=== PATIENT | female | born 1945 | race Caucasian/White ===

== ENCOUNTER 2017-01-02 10:12 | Inpatient (IN) | payer MEDICARE, BC ==
[~2017-01-02] VITALS: Ht 149.9 cm; Wt 75.8 kg
[2017-01-02] MEDS ORDERED: SYNTHROID100 MCG PO (11:37)
[2017-01-02] MEDS ORDERED: LEVOCETIRIZINE D5 MG PO (11:38)
[2017-01-02] MEDS ORDERED: PHENERGAN 25 MG25 M1 PO (11:39)
[2017-01-02] MEDS ORDERED: VITAMIN B-1000 MCG/M IM (11:40)
[2017-01-02] MEDS ORDERED: VALIUM 5 MG TAB5 MG PO (11:41)
[2017-01-02] MEDS ORDERED: LORTAB 5-325 M1 EACH PO (11:43)
[2017-01-02] MEDS ORDERED: LEXAPRO TAB 1010 MG PO (11:43)
[2017-01-02] MEDS ORDERED: NEURONTIN400 MG PO (11:46)
[2017-01-02] MEDS ORDERED: DITROPAN XL10 MG PO (11:52)
[2017-01-02] MEDS ORDERED: METOPROLOL SUCC50 MG PO (11:52)
[2017-01-02] MEDS ORDERED: NITROSTAT0.4 MG SL (11:53)
[2017-01-02] MEDS ORDERED: BROVANA15 MCG/2 M INH (11:53)
[2017-01-02] MEDS ORDERED: HYDROCHLOROTHIA25 MG PO (11:55)
[2017-01-02] MEDS ORDERED: K-TAB ER20 MEQ PO (11:55)
[2017-01-02] MEDS ORDERED: BUTALB-ACETAMI1 EAC1 PO (11:57)
[2017-01-02] MEDS ORDERED: BENADRYL 25MG C25 MG PO (11:58)
[2017-01-02 12:49] LABS: HEMOGLOBIN 12.3 gm/dl (12.3-15.3); RED BLOOD COUNT 4.14 M/UL (4.00-5.10)
[2017-01-02 13:10] LABS: BUN/CREATININE RATIO 18 (0-10)
[2017-01-02] MEDS ORDERED: PULMICORT0.5 MG/21 INH (16:22)
[2017-01-02] MEDS ORDERED: ASPIRIN EC81 MG PO (16:22)
[2017-01-02] MEDS ORDERED: FERREX 150150 MG PO (16:23)
[2017-01-02] MEDS ORDERED: IPRAT-ALBUT 0.5-3 ML INH (16:23)
[2017-01-02] MEDS ORDERED: VITAMIN D50000 UNIT PO (16:23)
[2017-01-03 05:11] LABS: RED BLOOD COUNT 4.35 M/UL (4.00-5.10)
[2017-01-03 05:13] LABS: WHITE BLOOD COUNT 3.8 K/UL (4.5-11.0)
[2017-01-03 05:45] LABS: BUN/CREATININE RATIO 20 (0-10)
[2017-01-05 06:56] LABS: HEMOGLOBIN 13.3 gm/dl (12.3-15.3); RED BLOOD COUNT 4.46 M/UL (4.00-5.10)
[2017-01-05 06:57] LABS: WHITE BLOOD COUNT 7.3 K/UL (4.5-11.0)
[2017-01-05 07:10] LABS: BUN/CREATININE RATIO 24 (0-10)
[2017-01-06 06:18] LABS: HEMOGLOBIN 14.9 gm/dl (12.3-15.3)
[2017-01-06 06:20] LABS: RED BLOOD COUNT 4.96 M/UL (4.00-5.10); WHITE BLOOD COUNT 11.3 K/UL (4.5-11.0)
[2017-01-06 06:36] LABS: BUN/CREATININE RATIO 29 (0-10)
[2017-01-06] MEDS ORDERED: ZESTRIL20 MG PO (12:33)
[2017-01-06] MEDS ORDERED: DIAMOX 250 MG250 MG PO (12:34)
[2017-01-06] MEDS ORDERED: TRAMADOL HCL50 MG PO (12:35)
[2017-01-06] MEDS ORDERED: PREDNISONE 20 M20 MG PO (12:38)
== END 2017-01-06 15:03 | disposition home health service (06) | DRG 189 ==
LOC: MED SURG 4 11:04
PROVIDERS: Family Medicine; ADMIT Internal Medicine
DX: J96.22 Acute and chronic respiratory failure with hypercapnia (principal); J44.1 Chronic obstructive pulmonary disease with (acute) exacerbation; J96.21 Acute and chronic respiratory failure with hypoxia; G47.10 Hypersomnia, unspecified; T50.905A Adverse effect of unspecified drugs, medicaments and biological substances, initial encounter; F32.9 Major depressive disorder, single episode, unspecified; Z79.890 Hormone replacement therapy; R21 Rash and other nonspecific skin eruption; M81.0 Age-related osteoporosis without current pathological fracture; Z79.82 Long term (current) use of aspirin; Z79.899 Other long term (current) drug therapy; Z99.81 Dependence on supplemental oxygen; I10 Essential (primary) hypertension; M79.7 Fibromyalgia; E03.9 Hypothyroidism, unspecified; K21.9 Gastro-esophageal reflux disease without esophagitis; Z87.442 Personal history of urinary calculi; G47.00 Insomnia, unspecified; E66.9 Obesity, unspecified; Z68.31 Body mass index [BMI] 31.0-31.9, adult; G89.4 Chronic pain syndrome; R11.2 Nausea with vomiting, unspecified; Z91.19 Patient's noncompliance with other medical treatment and regimen; N32.81 Overactive bladder; E53.8 Deficiency of other specified B group vitamins; E55.9 Vitamin D deficiency, unspecified; Z87.891 Personal history of nicotine dependence; Z90.710 Acquired absence of both cervix and uterus; Z98.61 Coronary angioplasty status; Z82.49 Family history of ischemic heart disease and other diseases of the circulatory system; Z82.3 Family history of stroke; Z83.3 Family history of diabetes mellitus; Z84.89 Family history of other specified conditions; Z88.5 Allergy status to narcotic agent; Z88.1 Allergy status to other antibiotic agents; Z88.3 Allergy status to other anti-infective agents; Z88.8 Allergy status to other drugs, medicaments and biological substances
CPT/HCPCS: 36415; 36600; 71010; 71020; 80048; 82803; 83735; 84132; 85025; 85027; 87040; 93005; 94640; 94660; J0456; J0696; J1650; J1885; J2405; J2930; J7030; J7040

== ENCOUNTER 2017-01-10 12:59 | Emergency (ER) | payer MEDICARE, BC ==
[~2017-01-10 12:59] MED LIST: ASPIRIN EC81 MG PO; BENADRYL 25MG C25 MG PO; BROVANA15 MCG/2 M INH; BUTALB-ACETAMI1 EAC1 PO; DIAMOX 250 MG250 MG PO; DITROPAN XL10 MG PO; FERREX 150150 MG PO; HYDROCHLOROTHIA25 MG PO; IPRAT-ALBUT 0.5-3 ML INH; K-TAB ER20 MEQ PO; LEVOCETIRIZINE D5 MG PO; LEXAPRO TAB 1010 MG PO; LORTAB 5-325 M1 EACH PO; METOPROLOL SUCC50 MG PO; NEURONTIN400 MG PO; NITROSTAT0.4 MG SL; PHENERGAN 25 MG25 M1 PO; PREDNISONE 20 M20 MG PO; PULMICORT0.5 MG/21 INH; SYNTHROID100 MCG PO; TRAMADOL HCL50 MG PO; VALIUM 5 MG TAB5 MG PO; VITAMIN B-1000 MCG/M IM; VITAMIN D50000 UNIT PO; ZESTRIL20 MG PO
[2017-01-10 15:44] LABS: HEMOGLOBIN 14.8 gm/dl (12.3-15.3); RED BLOOD COUNT 4.95 M/UL (4.00-5.10); WHITE BLOOD COUNT 22.1 K/UL (4.5-11.0)
== END 2017-01-11 01:15 | disposition short-term general hospital (02) ==
LOC: ER1 12:59
PROVIDERS: Student in an Organized Health Care Education/Training Program
DX: J96.00 Acute respiratory failure, unspecified whether with hypoxia or hypercapnia (principal); E86.0 Dehydration; K62.5 Hemorrhage of anus and rectum; N28.9 Disorder of kidney and ureter, unspecified; J44.9 Chronic obstructive pulmonary disease, unspecified; E78.5 Hyperlipidemia, unspecified; Z87.891 Personal history of nicotine dependence; Z90.49 Acquired absence of other specified parts of digestive tract; Z79.899 Other long term (current) drug therapy; Z88.1 Allergy status to other antibiotic agents; Z88.5 Allergy status to narcotic agent; Z88.8 Allergy status to other drugs, medicaments and biological substances
CPT/HCPCS: 36415; 36600; 51702; 70450; 71010; 80053; 81001; 82272; 82550; 82553; 82803; 83874; 84443; 84484; 85025; 85610; 85730; 87086; 93005; 94660; 96361; 96374; 99285; C9113; J7030